=== PATIENT | female | born 1950 | race Caucasian/White ===

== ENCOUNTER → 2016-11-05 | Outpatient (CLI) | payer MEDICARE, OTHER ==
[~2016-11-05] MED LIST: ALEVE220 M1 PO; ASPIR 8181 MG PO; ATENOLOL25 MG PO; AUGMENTIN PO; CALCIUM 600 +1 EA12 PO; CLEOCIN 30300 MG/50 PO; CVS FISH OIL 11 EAC1 PO; CYCLOBENZAPRINE10 MG PO; HYDROCHLOROTHIA25 MG PO; HYDROCODON-ACE1 EAC4 PO; MAALOX DPS30 ML PO; MULTIVITAMINS1 EAC1 PO; OSTEO BI-FLEX1 EAC1 PO; SURFAK240 MG PO; TYLENOL325 MG PO; ULTRAM DPS50 MG PO; VASOTEC2.5 MG PO
== END | disposition home or self-care (01) ==
LOC: RAD.S 11:30
DX: Z12.31 Encounter for screening mammogram for malignant neoplasm of breast (principal); Z80.3 Family history of malignant neoplasm of breast